=== PATIENT | female | born 2000 | race Caucasian/White ===

== ENCOUNTER 2023-01-01 08:00 | Outpatient (RCR) | payer BC | END 2023-01-05 | disposition home or self-care (01) | LOC: WSPT | DX: M25.311 Other instability, right shoulder (principal) ==

== ENCOUNTER 2023-04-08 09:10 | Outpatient (RCR) | payer BC | END 2023-05-08 | disposition home or self-care (01) | LOC: WSPT | DX: M25.311 Other instability, right shoulder (principal) ==